=== PATIENT | male | born 1965 | race African-American/Black ===

== ENCOUNTER 2016-11-26 00:21 | Emergency (ER) | payer MEDICARE, MEDICAID ==
[~2016-11-26] VITALS: Ht 175.3 cm; Wt 97.6 kg
[~2016-11-26 00:21] MED LIST: BP MED
[2016-11-26 00:24] VITALS: BP 177/136
== END 2016-11-26 01:34 | disposition home or self-care (01) ==
LOC: ED 01:07
DX: B35.0 Tinea barbae and tinea capitis (principal); I10 Essential (primary) hypertension; F17.200 Nicotine dependence, unspecified, uncomplicated
CPT/HCPCS: 99283

== ENCOUNTER 2017-04-26 20:12 | Emergency (ER) | payer MEDICARE, MEDICAID ==
[~2017-04-26] VITALS: Ht 175.3 cm; Wt 98.6 kg
[2017-04-26 21:12] LABS: ALBUMIN 3.8 g/dL (3.4-5.0); ANION GAP 7 mmol/L (5-15); CALCIUM 8.6 mg/dL (8.5-10.1); CHLORIDE 107 mmol/L (98-107)
[2017-04-26 21:14] LABS: CREATININE 1.29 mg/dL (0.7-1.3)
[2017-04-26 21:37] LABS: BASOPHILS # (AUTO) 0.04 x10^3/uL (0-0.1); BASOPHILS % (AUTO) 1 % (0-1); EOSINOPHILS # (AUTO) 0.08 x10^3/uL (0-0.4); EOSINOPHILS % (AUTO) 2 % (1-7); LYMPHOCYTES # (AUTO) 1.25 x10^3/uL (1-3.4); LYMPHOCYTES % (AUTO) 25 % (22-44); MD SCAN; MEAN CORPUSCULAR HEMOGLOBIN 27.6 pg (27.5-34.5); MEAN CORPUSCULAR HGB CONC 33.5 g/dL (33.2-36.2); MEAN CORPUSCULAR VOLUME 82.4 fL (81-97); MEAN PLATELET VOLUME 11.1 fL (7.4-10.4); MONOCYTES # (AUTO) 0.73 x10^3/uL (0.2-0.8); MONOCYTES % (AUTO) 15 % (2-9); NEUTROPHILS # (AUTO) 2.82 x10^3/uL (1.8-6.8); NEUTROPHILS % (AUTO) 57 % (42-75); PLATELET COUNT 138 x10^3/uL (130-400); RED BLOOD COUNT 4.98 x10^6/uL (4.38-5.82); RED CELL DISTRIBUTION WIDTH 12.7 % (9.4-14.8)
[2017-04-26] MEDS ORDERED: ASPIRIN 81 MG TABLET CHEW PO ONE (22:00)
[2017-04-26 22:34] LABS: TROPONIN I < 0.015 ng/mL (0.000-0.045)
[2017-04-26] MEDS ORDERED: ASPIRIN 81 MG TABLET EC ONE (23:01)
[2017-04-26] MEDS ORDERED: DIPHENHYDRAMINE 50 MG/ML, 1ML ONE (23:49)
[2017-04-26] MEDS ORDERED: methylPREDNISolone SOD SUCC 125 MG/2 ML ONE (23:50)
[2017-04-27] MEDS ORDERED: methylPREDNISolone SOD SUCC 125 MG/2 ML IVPush ONE
[2017-04-27] MEDS ORDERED: DIPHENHYDRAMINE 50 MG/ML, 1ML IVPush ONE
[2017-04-27] MEDS ORDERED: OMNIPAQUE 350 MG/ML, 100ML BOTTLE ONE (00:17)
[2017-04-27 00:44] VITALS: BP 177/108
== END 2017-04-27 01:23 | disposition home or self-care (01) ==
LOC: ED 22:24
DX: I10 Essential (primary) hypertension (principal); J06.9 Acute upper respiratory infection, unspecified; M79.1 Myalgia
CPT/HCPCS: 36415; 71045; 71275; 80048; 82040; 84484; 85025; 85379; 93005; 96374; 96375; 99285; J1200; J2930; Q9967

== ENCOUNTER 2017-08-10 19:29 | Emergency (ER) | payer MEDICARE, MEDICAID ==
[~2017-08-10] VITALS: Ht 175.3 cm; Wt 96.0 kg
[2017-08-10] MEDS ORDERED: OXYcodone/APAP 10/325MG TABLET PO ONE (20:00)
[2017-08-10] MEDS ORDERED: OXYcodone/APAP 10/325MG TABLET ONE (20:07)
[2017-08-10 20:17] LABS: ALANINE AMINOTRANSFERASE 28 U/L (12-78); ALBUMIN 3.9 g/dL (3.4-5.0); ANION GAP 6 mmol/L (5-15); CALCIUM 9.1 mg/dL (8.5-10.1); CHLORIDE 106 mmol/L (98-107); CREATININE 1.42 mg/dL (0.7-1.3)
[2017-08-10 20:20] LABS: ALKALINE PHOSPHATASE 71 U/L (45-117); BILIRUBIN,TOTAL 0.8 mg/dL (0.2-1.0); TOTAL PROTEIN 8.4 g/dL (6.4-8.2); TROPONIN I < 0.015 ng/mL (0.000-0.045)
[2017-08-10 20:28] LABS: BASOPHILS # (AUTO) 0.09 x10^3/uL (0-0.1); BASOPHILS % (AUTO) 1 % (0-1); EOSINOPHILS # (AUTO) 0.19 x10^3/uL (0-0.4); EOSINOPHILS % (AUTO) 3 % (1-7); LYMPHOCYTES # (AUTO) 2.64 x10^3/uL (1-3.4); LYMPHOCYTES % (AUTO) 35 % (22-44); MD MORPH REVIEW ONLY; MEAN CORPUSCULAR HEMOGLOBIN 27.9 pg (27.5-34.5); MEAN CORPUSCULAR HGB CONC 33.9 g/dL (33.2-36.2); MEAN CORPUSCULAR VOLUME 82.2 fL (81-97); MEAN PLATELET VOLUME 11.3 fL (7.4-10.4); MONOCYTES # (AUTO) 0.56 x10^3/uL (0.2-0.8); MONOCYTES % (AUTO) 7 % (2-9); NEUTROPHILS # (AUTO) 4.09 x10^3/uL (1.8-6.8); NEUTROPHILS % (AUTO) 54 % (42-75); PLATELET COUNT 178 x10^3/uL (130-400); RED BLOOD COUNT 5.22 x10^6/uL (4.38-5.82); RED CELL DISTRIBUTION WIDTH 12.6 % (9.4-14.8)
[2017-08-10 20:29] LABS: <PLATELET ESTIMATE> ADEQUATE; <RBC MORPHOLOGY> NORMAL; LARGE PLATELETS 2+
[2017-08-10 21:39] LABS: MICROSCOPIC INDICATED
[2017-08-10 21:50] LABS: CULTURE INDICATED? NO
[2017-08-10] MEDS ORDERED: METO-95 PO (22:18)
[2017-08-10] MEDS ORDERED: TRIA50CA PO (22:18)
[2017-08-10 22:40] VITALS: BP 190/115
== END 2017-08-10 22:43 | disposition home or self-care (01) ==
LOC: ED 22:37
DX: N50.89 Other specified disorders of the male genital organs (principal); I10 Essential (primary) hypertension; N50.812 Left testicular pain; N50.811 Right testicular pain; Z87.19 Personal history of other diseases of the digestive system
CPT/HCPCS: 36415; 71045; 76870; 80053; 81001; 84484; 85025; 93005; 99285

== ENCOUNTER 2017-12-18 13:09 | Inpatient (IN) | payer MEDICARE, MEDICAID ==
[~2017-12-18] VITALS: Ht 175.3 cm; Wt 89.0 kg
[~2017-12-18 13:09] MED LIST changes: +METO-95 PO; +TRIA50CA PO
[2017-12-18] MEDS ORDERED: HIGH BP (13:41)
[2017-12-18] MEDS ORDERED: HYDR-3240 PO (13:42)
[2017-12-18] MEDS ORDERED: METO25TA35 PO (13:44)
[2017-12-18] MEDS ORDERED: SODIUM CHLORIDE FLUSH 10ML SYR IVF ONE (14:00)
[2017-12-18] MEDS ORDERED: LABETALOL 5MG/ML, 20ML IVPush ONE (14:00)
[2017-12-18 14:04] LABS: MEAN CORPUSCULAR HEMOGLOBIN 27.2 pg (27.5-34.5); MEAN CORPUSCULAR HGB CONC 32.7 g/dL (33.2-36.2); MEAN CORPUSCULAR VOLUME 83.4 fL (81-97); MEAN PLATELET VOLUME 10.2 fL (7.4-10.4); PLATELET COUNT 183 x10^3/uL (130-400); RED BLOOD COUNT 4.89 x10^6/uL (4.38-5.82); RED CELL DISTRIBUTION WIDTH 12.4 % (9.4-14.8)
[2017-12-18 14:08] LABS: ALBUMIN 3.8 g/dL (3.4-5.0); ANION GAP 9 mmol/L (5-15); CALCIUM 8.9 mg/dL (8.5-10.1); CHLORIDE 109 mmol/L (98-107); CREATININE 1.33 mg/dL (0.7-1.3)
[2017-12-18] MEDS ORDERED: LABETALOL 5MG/ML, 20ML ONE (14:08)
[2017-12-18 14:12] LABS: TROPONIN I < 0.015 ng/mL (0.000-0.045)
[2017-12-18 14:40] LABS: MD YES
[2017-12-18 14:48] LABS: BAND#(MANUAL) 0.06 x10^3/uL; BANDS%(MANUAL) 1 % (0-7); BASOS#(MANUAL) 0.06 x10^3/uL (0-0.1); BASOS% (MANUAL) 1 % (0-1); EOS#(MANUAL) 0.06 x10^3/uL (0.0-0.4); EOS% (MANUAL) 1 % (1-7); LYMPH#(MANUAL) 2.11 x10^3/uL (1-3.4); LYMPHS% (MANUAL) 33 % (22-44); MONOS#(MANUAL) 0.38 x10^3/uL (0.3-2.7); MONOS% (MANUAL) 6 % (2-9); SEG#(MANUAL) 3.71 x10^3/uL (1.8-6.8); SEGS% (MANUAL) 58 % (42-75)
[2017-12-18 14:49] LABS: <PLATELET ESTIMATE> ADEQUATE; <PLT MORPHOLOGY> NORMAL PLT MORPH; <RBC MORPHOLOGY> NORMAL
[2017-12-18] MEDS ORDERED: SODIUM CHLORIDE FLUSH 10ML SYR IVF PRN (15:00)
[2017-12-18] MEDS ORDERED: NITROGLYCERIN 0.4 MG BOTTLE (25 TABS) SL PRN (15:30)
[2017-12-18] MEDS ORDERED: OXYcodone/APAP 5/325MG TABLET PO PRN (15:30)
[2017-12-18] MEDS: NICOTINE 7 MG/24 HR PATCH.TD24 TD SCH (15:30)
[2017-12-18] MEDS ORDERED: ACETAMINOPHEN 325 MG TABLET PO PRN (15:30)
[2017-12-18] MEDS ORDERED: morphine SULFATE 10 MG/ML, 1ML IVPush PRN (15:30)
[2017-12-18] MEDS ORDERED: ONDANSETRON 2MG/ML, 2ML IVPush PRN (15:30)
[2017-12-18] MEDS ORDERED: ASPIRIN 81 MG TABLET CHEW PO ONE (15:30)
[2017-12-18] MEDS ORDERED: LABETALOL 5MG/ML, 20ML IVPush PRN (15:30)
[2017-12-18 15:49] LABS: INTERNATIONAL NORMALIZED RATIO 1.03 (0.93-1.1); PROTHROMBIN TIME 10.6 Seconds (9.6-11.5)
[2017-12-18 15:52] LABS: C-REACTIVE PROTEIN, QUANT 0.71 mg/dL (0.02-0.49)
[2017-12-18 16:00] LABS: FREE T4 (FREE THYROXINE) 0.95 ng/dL (0.76-1.46); THYROID STIMULATING HORMONE 0.922 mIU/L (0.358-3.740)
[2017-12-18 16:10] VITALS: BP 202/121
[2017-12-18] MEDS: BUTALB/APAP/CAFFEINE 50MG/325MG/40MG PO PRN ×2 (16:24→22:10)
[2017-12-18] MEDS: hydrALAzine 20 MG/ML, 1ML IVPush PRN ×2 (16:25→20:49)
[2017-12-18] MEDS: HEPARIN 5,000 UNITS/ML, 1ML SQ SCH ×2 (16:25→23:44)
[2017-12-18 17:36] LABS: TROPONIN I < 0.015 ng/mL (0.000-0.045)
[2017-12-18 20:00] VITALS: BP_SYST 169; BP_SYST 184; BP_DIAS 104; BP_DIAS 105
[2017-12-18] MEDS: ATORVASTATIN 80 MG TABLET PO SCH (20:39)
[2017-12-18 23:21] LABS: TROPONIN I < 0.015 ng/mL (0.000-0.045)
[2017-12-18 23:55] LABS: MICROSCOPIC INDICATED
[2017-12-19] VITALS (9 sets, daily range): BP systolic 148–196; BP diastolic 81–127
[2017-12-19 00:04] LABS: CULTURE INDICATED? YES
[2017-12-19 00:07] LABS: AMPHETAMINE SCREEN, URINE Negative (Negative); BARBITURATE SCREEN, URINE Positive (Negative); BENZODIAZEPINE SCREEN, URINE Negative (Negative); CANNABINOID SCREEN, URINE Positive (Negative); COCAINE SCREEN, URINE Negative (Negative); METHADONE SCREEN, URINE Negative (Negative); OPIATE SCREEN, URINE Negative (Negative)
[2017-12-19] MEDS: NICOTINE 7 MG/24 HR PATCH.TD24 TD SCH (06:02)
[2017-12-19 06:21] LABS: ALANINE AMINOTRANSFERASE 23 U/L (12-78); ALBUMIN 3.3 g/dL (3.4-5.0); ANION GAP 9 mmol/L (5-15); CHLORIDE 109 mmol/L (98-107); CREATININE 1.23 mg/dL (0.7-1.3)
[2017-12-19 06:23] LABS: ALKALINE PHOSPHATASE 63 U/L (45-117); BILIRUBIN,TOTAL 0.6 mg/dL (0.2-1.0); TOTAL PROTEIN 7.6 g/dL (6.4-8.2)
[2017-12-19 06:39] LABS: MEAN CORPUSCULAR HEMOGLOBIN 28.1 pg (27.5-34.5); MEAN CORPUSCULAR HGB CONC 33.3 g/dL (33.2-36.2); MEAN CORPUSCULAR VOLUME 84.3 fL (81-97); MEAN PLATELET VOLUME 10.6 fL (7.4-10.4); PLATELET COUNT 170 x10^3/uL (130-400); RED BLOOD COUNT 4.53 x10^6/uL (4.38-5.82); RED CELL DISTRIBUTION WIDTH 12.7 % (9.4-14.8)
[2017-12-19 06:42] LABS: BASOPHILS # (AUTO) 0.08 x10^3/uL (0-0.1); BASOPHILS % (AUTO) 1 % (0-1); EOSINOPHILS # (AUTO) 0.23 x10^3/uL (0-0.4); EOSINOPHILS % (AUTO) 4 % (1-7); LYMPHOCYTES # (AUTO) 2.78 x10^3/uL (1-3.4); LYMPHOCYTES % (AUTO) 45 % (22-44); MD SCAN; MONOCYTES # (AUTO) 0.53 x10^3/uL (0.2-0.8); MONOCYTES % (AUTO) 9 % (2-9); NEUTROPHILS # (AUTO) 2.62 x10^3/uL (1.8-6.8); NEUTROPHILS % (AUTO) 42 % (42-75)
[2017-12-19] MEDS: AMLODIPINE 10 MG TAB PO SCH (07:58)
[2017-12-19] MEDS: HYDROCHLOROTHIAZIDE 25 MG TABLET PO SCH (07:58)
[2017-12-19] MEDS: HEPARIN 5,000 UNITS/ML, 1ML SQ SCH ×3 (07:58→23:30)
[2017-12-19] MEDS ORDERED: LISINOPRIL 5 MG TABLET PO SCH (09:00)
[2017-12-19] MEDS: hydrALAzine 20 MG/ML, 1ML IVPush PRN ×2 (10:00→21:58)
[2017-12-19] MEDS ORDERED: hydrALAzine 20 MG/ML, 1ML IV ONE (13:30)
[2017-12-19] MEDS ORDERED: LORazepam 2 MG/ML, 1ML IVPush ONE (13:30)
[2017-12-19] MEDS: ATORVASTATIN 80 MG TABLET PO SCH (20:45)
[2017-12-19 23:22] LABS: TROPONIN I < 0.015 ng/mL (0.000-0.045)
[2017-12-20] MEDS: BUTALB/APAP/CAFFEINE 50MG/325MG/40MG PO PRN (01:53)
[2017-12-20 01:58] VITALS: BP 151/100
[2017-12-20] MEDS: NICOTINE 7 MG/24 HR PATCH.TD24 TD SCH (05:47)
[2017-12-20 06:56] VITALS: BP 159/96
[2017-12-20] MEDS: AMLODIPINE 10 MG TAB PO SCH (08:26)
[2017-12-20] MEDS: HEPARIN 5,000 UNITS/ML, 1ML SQ SCH (08:26)
[2017-12-20] MEDS: HYDROCHLOROTHIAZIDE 25 MG TABLET PO SCH (08:26)
[2017-12-20] MEDS ORDERED: NITR0.4T SL (08:46)
[2017-12-20] MEDS ORDERED: CLON0.1T12 PO (08:46)
[2017-12-20] MEDS ORDERED: AMLO10TA6 PO (08:46)
[2017-12-20] MEDS ORDERED: ACET325T14 PO (08:46)
[2017-12-20] MEDS ORDERED: ASPI-515 PO (08:46)
[2017-12-20] MEDS ORDERED: HYDR25TA6 PO (08:46)
[2017-12-20] MEDS ORDERED: LISI-170 PO (08:46)
[2017-12-20] MEDS ORDERED: LISINOPRIL 20 MG TABLET PO SCH (09:00)
== END 2017-12-20 10:32 | disposition home or self-care (01) | DRG 304 ==
LOC: ED 15:04 → EDIP 15:15 → 4EST 15:59 → DCLOUNGE 12-20 10:20
PROVIDERS: ADMIT Internal Medicine; ATTEND Internal Medicine
DX: I16.1 Hypertensive emergency (principal); N17.0 Acute kidney failure with tubular necrosis; F17.210 Nicotine dependence, cigarettes, uncomplicated; I11.9 Hypertensive heart disease without heart failure; M25.572 Pain in left ankle and joints of left foot; N50.82 Scrotal pain; R26.2 Difficulty in walking, not elsewhere classified; S93.492A Sprain of other ligament of left ankle, initial encounter; F19.10 Other psychoactive substance abuse, uncomplicated; Y93.89 Activity, other specified; Y92.89 Other specified places as the place of occurrence of the external cause; Z82.49 Family history of ischemic heart disease and other diseases of the circulatory system; Y99.8 Other external cause status
CPT/HCPCS: 36415; 70450; 71045; 76870; 80048; 80053; 80307; 81001; 82040; 84439; 84443; 84484; 84550; 85025; 85610; 85651; 85730; 86140; 87086; 93005; 93306; 96374; 99285; G0378; J1644; J0360; J2060

== ENCOUNTER 2018-05-09 22:47 | Emergency (ER) | payer MEDICARE, MEDICAID ==
[~2018-05-09] VITALS: Ht 175.3 cm; Wt 94.6 kg
[~2018-05-09 22:47] MED LIST changes: +ACET325T14 PO; +AMLO10TA8 PO; +ASPI-515 PO; +CLON0.1T12 PO; +HIGH BP; +HYDR-3240 PO; +HYDR25TA6 PO; +LISI-170 PO; +METO25TA35 PO; +NITR0.4T SL
[2018-05-09 22:49] VITALS: BP 173/94
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
[2018-05-09] MEDS ORDERED: NAPROXEN 500 MG TABLET ONE (23:25)
[2018-05-09] MEDS ORDERED: NAPROXEN 500 MG TABLET PO ONE (23:30)
--- NOTE | 2018-05-09 23:33 | NUR ---
PT MEDICATED PER EMAR, GIVEN SNACK WITH PILL TO PREVENT UPSET STOMACH.
--- NOTE | 2018-05-09 23:53 | NUR ---
REPORT TO ARON MAYS.
--- NOTE | 2018-05-09 23:55 | NUR ---
RECEIVED REPORT FROM TABATHA HOOKER TO ASSUME PT. CARE. AWAITING X-RAY READ.
--- NOTE | 2018-05-10 00:09 | NUR ---
CHART UP FOR RECHECK BY ERMD AT THIS TIME.
== END 2018-05-10 00:43 | disposition home or self-care (01) ==
LOC: ED 23:17
DX: M25.552 Pain in left hip (principal); I10 Essential (primary) hypertension
CPT/HCPCS: 99283

== ENCOUNTER 2018-06-07 04:57 | Emergency (ER) | payer MEDICARE, MEDICAID ==
[~2018-06-07] VITALS: Ht 175.3 cm; Wt 93.7 kg
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
[2018-06-07] MEDS ORDERED: HYDROmorphone 1 MG/ML, 1ML INJ IM ONE (05:30)
[2018-06-07] MEDS ORDERED: HYDROmorphone 1 MG/ML, 1ML VIAL ONE (05:31)
[2018-06-07] MEDS ORDERED: LIDOCAINE-MPF 1%, 5ML ONE (05:38)
--- NOTE | 2018-06-07 06:31 | NUR ---
still pending ct result
--- NOTE | 2018-06-07 06:37 | NUR ---
bp better after given dilaudid im shot
--- NOTE | 2018-06-07 07:08 | NUR ---
notified ct dept regarding pending of ct result
[2018-06-07] MEDS ORDERED: DIPH,PERTUSS(ACELL),TET VAC/PF 0.5 ML IM-VACC ONE ×2 (07:30→08:12)
[2018-06-07] MEDS ORDERED: BACITRACIN ZINC OINT 500U/GM, 0.9 GM ONE (08:12)
[2018-06-07 08:28] VITALS: BP 162/114
--- NOTE | 2018-06-07 08:28 | NUR ---
Patient given discharge instructions and they have confirmed that they understand the instructions. Patient ambulatory with steady gait. Pt and family left with all personal belongings, discharge paperwork, and prescriptions.
== END 2018-06-07 08:33 | disposition home or self-care (01) ==
LOC: ED 07:17
DX: S01.511A Laceration without foreign body of lip, initial encounter (principal); I10 Essential (primary) hypertension; Y04.8XXA Assault by other bodily force, initial encounter; Y93.89 Activity, other specified; Y92.009 Unspecified place in unspecified non-institutional (private) residence as the place of occurrence of the external cause; Y99.8 Other external cause status
CPT/HCPCS: 40650; 70450; 70486; 90471; 90715; 96372; 99284; J1170

== ENCOUNTER 2018-06-12 19:05 | Emergency (ER) | payer MEDICARE, MEDICAID ==
[~2018-06-12] VITALS: Ht 175.3 cm; Wt 93.3 kg
--- NOTE | 2018-06-12 19:25 | NUR ---
PT HERE FOR SUTURE REMOVAL. PT TOLERATED WELL. PT HAD 6 SUTURES REMOVED.
--- NOTE | 2018-06-12 19:29 | NUR ---
Patient/Caregiver given discharge instructions and they have confirmed that they understand the instructions. Patient ambulatory with steady gait.
[2018-06-12 19:41] VITALS: BP 166/102
== END 2018-06-12 19:49 | disposition home or self-care (01) ==
LOC: ED 19:18
DX: S01.511D Laceration without foreign body of lip, subsequent encounter (principal); I10 Essential (primary) hypertension; F17.210 Nicotine dependence, cigarettes, uncomplicated; X58.XXXD Exposure to other specified factors, subsequent encounter
CPT/HCPCS: 99283

== ENCOUNTER 2019-05-02 09:35 | Emergency (ER) | payer MEDICAID, MEDICARE ==
[~2019-05-02] VITALS: Ht 175.3 cm; Wt 94.5 kg
[~2019-05-02 09:35] MED LIST changes: -NITR0.4T SL; +NITR0.4T41 SL
[2019-05-02] MEDS ORDERED: ASPIRIN 81 MG TABLET CHEW ONE (09:46)
[2019-05-02] MEDS ORDERED: ASPIRIN 81 MG TABLET CHEW PO ONE (10:00)
--- NOTE | 2019-05-02 10:06 | NUR ---
SURVIVAL SPECIALIST: TO ROOM FROM LOBBY
[2019-05-02 10:16] LABS: ALBUMIN 3.8 g/dL (3.4-5.0); ANION GAP 7 mmol/L (5-15); CALCIUM 9.1 mg/dL (8.5-10.1); CHLORIDE 103 mmol/L (98-107)
[2019-05-02 10:22] LABS: CREATININE 1.47 mg/dL (0.7-1.3); TROPONIN I < 0.015 ng/mL (0.000-0.045)
[2019-05-02 10:39] LABS: MEAN CORPUSCULAR HEMOGLOBIN 27.6 pg (27.5-34.5); MEAN CORPUSCULAR HGB CONC 32.5 g/dL (33.2-36.2); MEAN CORPUSCULAR VOLUME 84.7 fL (81-97); PLATELET COUNT 165 x10^3/uL (130-400); RED BLOOD COUNT 5.48 x10^6/uL (4.38-5.82); RED CELL DISTRIBUTION WIDTH 12.6 % (9.4-14.8)
[2019-05-02 10:40] LABS: MD YES
[2019-05-02 10:41] LABS: EOS#(MANUAL) 0.24 x10^3/uL (0.0-0.4); EOS% (MANUAL) 3 % (1-7); LYMPH#(MANUAL) 2.64 x10^3/uL (1-3.4); LYMPHS% (MANUAL) 33 % (22-44); MONOS#(MANUAL) 0.96 x10^3/uL (0.3-2.7); MONOS% (MANUAL) 12 % (2-9); SEG#(MANUAL) 4.16 x10^3/uL (1.8-6.8); SEGS% (MANUAL) 52 % (42-75)
[2019-05-02 10:42] LABS: <PLATELET ESTIMATE> ADEQUATE; GIANT PLATELETS 1+
[2019-05-02 10:50] LABS: <RBC MORPHOLOGY> NORMAL
[2019-05-02] MEDS ORDERED: MAALOX/HYOSCYAMINE/LIDOCAINE 45 ML BTL ONE (10:53)
[2019-05-02] MEDS ORDERED: MAALOX/HYOSCYAMINE/LIDOCAINE 45 ML BTL PO ONE (11:00)
[2019-05-02 12:12] LABS: TROPONIN I < 0.015 ng/mL (0.000-0.045)
[2019-05-02 13:21] VITALS: BP 151/107
== END 2019-05-02 13:23 | disposition home or self-care (01) ==
LOC: ED 13:00
DX: R07.89 Other chest pain (principal); I10 Essential (primary) hypertension
CPT/HCPCS: 36415; 71045; 80048; 82040; 84484; 85025; 93005; 99285

== ENCOUNTER 2020-04-24 01:56 | Emergency (ER) | payer MEDICARE, MEDICAID ==
[~2020-04-24] VITALS: Ht 175.3 cm; Wt 98.8 kg
[~2020-04-24 01:56] MED LIST changes: +AMLO-211 PO; -AMLO10TA8 PO; -ASPI-515 PO; +ASPI-963 PO; +HYDR-1067 PO; -HYDR-3240 PO
[2020-04-24 03:58] VITALS: BP 202/131
--- NOTE | 2020-04-24 03:59 | NUR ---
Pt dc'd with written and verbal instructions. RX reviewed. Pt states understanding to both DC instructions and rx instructions. Teaching done on hypertension, and pt aware of dangers of HTN. ER physician aware of pts HTN. Pt ambulatory out of ED and home with a ride.
== END 2020-04-24 04:04 | disposition home or self-care (01) ==
LOC: ED 02:26
DX: I10 Essential (primary) hypertension (principal); R94.31 Abnormal electrocardiogram [ECG] [EKG]; R36.9 Urethral discharge, unspecified; F17.210 Nicotine dependence, cigarettes, uncomplicated
CPT/HCPCS: 87491; 87591; 93005; 99284; 99406

== ENCOUNTER 2020-08-22 20:36 | Emergency (ER) | payer MEDICARE, MEDICAID ==
[~2020-08-22] VITALS: Ht 175.3 cm; Wt 94.0 kg
[~2020-08-22 20:36] MED LIST changes: -HYDR-1067 PO; +HYDR-2214 PO
[2020-08-22 22:31] LABS: BASOPHILS % (AUTO) 1 % (0-1); EOSINOPHILS % (AUTO) 3 % (1-7); LYMPHOCYTES % (AUTO) 31 % (22-44); MEAN CORPUSCULAR HEMOGLOBIN 28.5 pg (27.5-34.5); MEAN CORPUSCULAR HGB CONC 32.8 g/dL (33.2-36.2); MEAN PLATELET VOLUME 10.8 fL (7.4-10.4); MONOCYTES % (AUTO) 7 % (2-9); NEUTROPHILS % (AUTO) 58 % (42-75); PLATELET COUNT 157 x10^3/uL (130-400); RED BLOOD COUNT 4.97 x10^6/uL (4.38-5.82); RED CELL DISTRIBUTION WIDTH 13.4 % (9.4-14.8)
[2020-08-22] MEDS ORDERED: ACETAMINOPHEN 325 MG TABLET ONE (22:33)
[2020-08-22 22:35] LABS: ALBUMIN 3.6 g/dL (3.4-5.0); ANION GAP 5 mmol/L (5-15); CALCIUM 9.2 mg/dL (8.5-10.1); CHLORIDE 105 mmol/L (98-107)
[2020-08-22 22:43] LABS: ALANINE AMINOTRANSFERASE 24 U/L (12-78); ALKALINE PHOSPHATASE 57 U/L (45-117); BILIRUBIN,TOTAL 0.7 mg/dL (0.2-1.0); TOTAL PROTEIN 8.2 g/dL (6.4-8.2); TROPONIN I < 0.015 ng/mL (0.000-0.045)
[2020-08-22] MEDS ORDERED: ACETAMINOPHEN 325 MG TABLET PO ONE (23:00)
[2020-08-22 23:04] LABS: <PLATELET ESTIMATE> ADEQUATE; <RBC MORPHOLOGY> NORMAL
[2020-08-22 23:05] LABS: GIANT PLATELETS 1+
[2020-08-22 23:24] VITALS: BP 144/74
== END 2020-08-22 23:26 | disposition home or self-care (01) ==
LOC: ED 20:56
DX: K52.9 Noninfective gastroenteritis and colitis, unspecified (principal); N28.9 Disorder of kidney and ureter, unspecified; K76.9 Liver disease, unspecified; R94.31 Abnormal electrocardiogram [ECG] [EKG]; I10 Essential (primary) hypertension; F17.200 Nicotine dependence, unspecified, uncomplicated
CPT/HCPCS: 36415; 76700; 80053; 83690; 84484; 85025; 93005; 99285